=== PATIENT | female | born 1970 | race Caucasian/White ===

== ENCOUNTER 2021-11-03 08:23 | Emergency (ER) | payer MEDICAID, OTHER ==
--- NOTE | 2021-11-03 08:23 | NUR ---
CALLED PT IN [place] FOR TRIAGE, NO ANSWER.
--- NOTE | 2021-11-03 08:41 | NUR ---
PT STATES SHE DOES NOT WANT TO BE SEEN ANYMORE. WHITNEYD MADE AWARE.
== END 2021-11-03 08:41 | disposition left against medical advice (07) ==
LOC: MED 08:23
DX: R19.7 Diarrhea, unspecified (principal); Z53.21 Procedure and treatment not carried out due to patient leaving prior to being seen by health care provider